=== PATIENT | female | born 1985 | race Two or more races ===

== ENCOUNTER 2017-01-31 13:16 | Emergency (ER) | payer SELFPAY ==
[~2017-01-31] VITALS: Ht 149.9 cm; Wt 52.2 kg
[2017-01-31] MEDS ORDERED: Ketorolac 60mg Inj IM ONE (13:45)
[2017-01-31] MEDS ORDERED: LIDODERM700 M1 TOPIC (14:08)
[2017-01-31 14:32] VITALS: BP 113/59
--- NOTE | 2017-01-31 16:40 | Diagnostic Imaging Report ---
Indication: PAIN Technique: 2 views of the right hip Comparison: None Findings: There is severe narrowing of the joint. This is mostly circumferential, with with only minimal proliferative change. The bones are equivocally somewhat osteoporotic. No acute fractures. No dislocations. Impression: Evidence of right hip circumferential joint space narrowing. While possibly on the basis of degenerative change, patient's young age and appearance of the joint space narrowing raises possibility of inflammatory arthropathy. Correlation with clinical findings is recommended.
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
== END 2017-01-31 14:32 | disposition home or self-care (01) ==
LOC: EDBD 13:16 → EMR 13:57
DX: M16.11 Unilateral primary osteoarthritis, right hip (principal); Q87.1 Congenital malformation syndromes predominantly associated with short stature
CPT/HCPCS: 96372; 99284